=== PATIENT | male | born 2000 | race Caucasian/White ===

== ENCOUNTER 2024-08-30 19:14 | Outpatient (REF) | payer BC, SELFPAY ==
--- NOTE | ~2024-08-30 | MR_ITS ---
EXAMINATION: MR KNEE WITHOUT CONTRAST, LEFT CLINICAL INFORMATION: Knee pain. Patient reports injury. COMPARISON: None available. TECHNIQUE: MRI of the knee without contrast was performed using routine sequences on a high-field scanner. FINDINGS: MENISCI: Medial Meniscus: Increased T2 signal in the peripheral meniscocapsular interface of the posterior horn, from possible tearing. Lateral Meniscus: Superior surface tear in the peripheral third of the posterior horn. Degenerative fraying/ill-defined tear of the posterior root. LIGAMENTS: Cruciate: Status post ACL reconstruction. There is increased T2 signal in the ACL graft, could reflect degeneration or sprain. There is a mild intermediate/increased T2 signal along the ACL graft, and in the anterior intercondylar region, could reflect postsurgical changes, reactive edema, mild fibrosis not excluded. Intact PCL. Collateral: Intact EXTENSOR MECHANISM: Intact. Increased T2 signal in the proximal patellar tendon, could reflect postsurgical changes, tendinosis/interstitial tearing. There is edema in the fat deep to the patellar tendon. ARTICULAR CARTILAGE/BONE: Patellofemoral Compartment: No significant chondral loss. Medial Compartment: No significant chondral loss. Lateral Compartment: Edema presumably bone contusion in the posterior aspect lateral tibial plateau. There is overlying mild chondral heterogeneity. Edema from bone contusion in the lateral aspect lateral femoral condyle. JOINT FLUID AND BURSAE: Small effusion. No trace Zarate's cyst. Mild soleus and lateral gastrocnemius muscle edema, perhaps strain. MR/MR knee LT wo con IMPRESSION: 1. Possible tearing of the peripheral meniscocapsular interface of the posterior horn medial meniscus. 2. Superior surface tear in the peripheral third of the posterior horn lateral meniscus. Degenerative fraying/ill-defined tear of the posterior root. 3. Status post ACL reconstruction. ACL signal changes could reflect degeneration or sprain. Mild intermediate/increased T2 signal along the ACL graft, and in the anterior intercondylar region, could reflect postsurgical changes, reactive edema, mild fibrosis not excluded. 4. Increased T2 signal in the proximal patellar tendon, could reflect postsurgical changes, tendinosis/interstitial tearing. 5. Bone contusion in the posterior aspect lateral tibial plateau. Bone contusion in the lateral aspect lateral femoral condyle. 6. Small effusion. Trace Zarate's cyst. 7. Mild soleus and lateral gastrocnemius muscle edema, perhaps strain. Electronically signed by: Beny To MD 08/31/2024 05:06 PM [facility] MCADAMS
== END 2024-08-30 19:15 | disposition home or self-care (01) ==
LOC: HO.MRI 19:14
PROVIDERS: PCP Family Medicine; Visit Provider Family Medicine
DX: M25.562 Pain in left knee (principal)
CPT/HCPCS: 73721

== ENCOUNTER 2025-01-06 19:13 | Outpatient (REF) | payer BC, SELFPAY ==
--- NOTE | ~2025-01-06 | MR_ITS ---
CLINICAL HISTORY: LOW BACK PAIN Injury low back 2 years ago (slipped disc). Now pain radiates to lef t groin, left leg MR lumbar spine without intravenous contrast Comparison: None available Findings: Normal heights of 5 lumbar type vertebrae. No significant listhesis. Mild Modic endplate changes including type 1 and type 2 at L4-L5 and L5-S1. Intervertebral disc height loss noted of the L5-S1. Conus terminates at L1. No drainable paraspinal fluid collection. No significant central spinal canal stenosis. Multifocal facet arthropathy including L3-L4, L4-L5, and L5-S1. Disc bulge with annular fissure and endplate hypertrophy and small disc extrusion at L5-S1. [id number] left lateral recess narrowing and mild left-sided foraminal narrowing at L5-S1. IMPRESSION: 1. Small disc extrusion at L5-S1 with left lateral recess narrowing at L5-S1. 2. Mild Facet arthropathy greater than expected for age. This document has been electronically signed by: Bhavik Medley MD on 01/06/2025 20:09:52
== END 2025-01-06 19:14 | disposition home or self-care (01) ==
LOC: HO.MRI 19:13
PROVIDERS: Visit Provider Student in an Organized Health Care Education/Training Program
DX: M54.50 Low back pain, unspecified (principal)
CPT/HCPCS: 72148

== ENCOUNTER → 2025-01-06 19:25 | Outpatient (BNV) | payer BC, SELFPAY | PROVIDERS: Visit Provider Radiology Neuroradiology | DX: M51.27 Other intervertebral disc displacement, lumbosacral region (principal); M99.53 Intervertebral disc stenosis of neural canal of lumbar region | CPT/HCPCS: 72148 ==